=== PATIENT | male | born 1975 | race Caucasian/White ===

== ENCOUNTER 2018-12-25 03:30 | Emergency (ER) | payer BC, OTHER ==
[2018-12-25] MEDS ORDERED: ONDANSETRON HCL INJ/PF 4 MG/2 ML SDV IV ONE (03:39)
[2018-12-25] MEDS ORDERED: KETOROLAC TROMETHAMINE INJ/PF 30 MG/1 ML SDV IV ONE (03:39)
[2018-12-25 04:05] LABS: HEMATOCRIT 42.9 % (37.9-51.0); HEMOGLOBIN 15.2 g/dL (13.5-17.0); MEAN CORPUSCULAR HEMOGLOBIN 32.4 pg (27.0-33.4); MEAN CORPUSCULAR HGB CONC 35.4 g/dL (32.0-36.0); MEAN CORPUSCULAR VOLUME 91 fl (80-97); PLATELET COUNT 217 10^3/uL (150-450); RED CELL DISTRIBUTION WIDTH 12.8 % (11.5-14.0); WHITE BLOOD COUNT 8.8 10^3/uL (4.0-10.5)
[2018-12-25 04:12] LABS: APPEARANCE,URINE CLEAR; BILIRUBIN,URINE NEGATIVE (NEGATIVE); COLOR,URINE YELLOW; GLUCOSE, URINE NEGATIVE (NEGATIVE); KETONES,URINE NEGATIVE (NEGATIVE); LEUKOCYTE ESTERASE,URINE NEGATIVE (NEGATIVE); NITRITE,URINE NEGATIVE (NEGATIVE); PROTEIN,URINE NEGATIVE (NEGATIVE); URINE SPECIFIC GRAVITY 1.018; UROBILINOGEN,URINE NEGATIVE mg/dL (<2.0)
[2018-12-25 04:26] LABS: ABSOLUTE LYMPHOCYTES# (MANUAL) 5.5 10^3/uL (0.5-4.7); ABSOLUTE MONOCYTES # (MANUAL) 0.7 10^3/uL (0.1-1.4); BASOPHILS % (MANUAL) 0 % (0-2); EOSINOPHILS % (MANUAL) 2 % (0-6); LYMPHOCYTES % (MANUAL) 61 % (13-45); MONOCYTES % (MANUAL) 8 % (3-13); PLATELET COMMENT ADEQUATE; RBC MORPHOLOGY COMMENT NORMO-CYTIC/CHROMIC; SEGMENTED NEUTROPHILS % (MAN) 28 % (42-78); TOTAL CELLS COUNTED 100
[2018-12-25 04:32] LABS: ALBUMIN 4.6 g/dL (3.5-5.0); ALKALINE PHOSPHATASE 47 U/L (38-126); ANION GAP 9 (5-19); ASPARTATE AMINO TRANSFERASE 33 U/L (17-59); BILIRUBIN,DIRECT 0.3 mg/dL (0.0-0.4); BILIRUBIN,TOTAL 0.7 mg/dL (0.2-1.3); BLOOD UREA NITROGEN 22 mg/dL (7-20); CALCIUM 9.6 mg/dL (8.4-10.2); CARBON DIOXIDE 30 mmol/L (22-30); CHLORIDE 102 mmol/L (98-107); GLUCOSE 113 mg/dL (75-110); POTASSIUM 4.6 mmol/L (3.6-5.0)
[2018-12-25] MEDS ORDERED: HYDROMORPHONE HCL INJ/PF 2 MG/ML AMPULE IV ONE ×2 (05:41→06:39)
[2018-12-25] MEDS ORDERED: NORMAL SALINE 1000 ML 1,000 ML IV ONE (05:42)
--- NOTE | 2018-12-25 06:30 | RADIOLOGY REPORT (SQ) ---
EXAM DESCRIPTION: CT ABDOMEN PELVIS WITHOUT IV CONTRAST COMPLETED DATE/TME: 12/25/2018 05:42 CLINICAL HISTORY: 43 years, Male, R flank pain, hx renal stones COMPARISON: None. TECHNIQUE: Axial CT images of the abdomen and pelvis were obtained without contrast. Sagittal and coronal reformats were performed. DLP 855 Images stored on PACS. All CT scanners at this facility use dose modulation, iterative reconstruction, and/or weight based dosing when appropriate to reduce radiation dose to as low as reasonably achievable (ALARA). [facility]: Dose Right [facility]: CareDose [facility]: Dose Right [facility]: Teradose 4D [facility]: [employer] LIMITATIONS: None. FINDINGS: The lung bases are clear. The liver, gallbladder, pancreas, spleen, and adrenal glands are unremarkable. There is a 3 mm stone within the distal right ureter causing mild hydroureter and hydronephrosis. There are additional stones within the right kidney the largest of which measures 6 mm in size. There is a 4 mm nonobstructing stone along the upper pole of the left kidney. There is no intraperitoneal free air or fluid. There is no lymphadenopathy. The abdominal aorta is normal in caliber. The stomach, small bowel, appendix, and colon appear unremarkable. The urinary bladder and prostate gland are unremarkable. There are no lytic or blastic bone lesions. IMPRESSION: 3 mm stone within the distal right ureter causing mild hydroureter and hydronephrosis. Additional stones within the right kidney measuring up to 6 mm in size. Nonobstructing left-sided nephrolithiasis. TECHNICAL DOCUMENTATION: Quality ID # 436: Final reports with documentation of one or more dose reduction techniques (e.g., Automated exposure control, adjustment of the mA and/or kV according to patient size, use of iterative reconstruction technique) copyright 2010 [employer]- All Rights Reserved
[2018-12-25] MEDS ORDERED: PROMETHAZINE HCL INJ 25 MG/1 ML VIAL IV ONE (06:39)
--- NOTE | 2018-12-25 07:05 | ER Document Report ---
ED General - General Chief Complaint: Possible Kidney Stone Stated Complaint: RIGHT SIDED FLANK PAIN Time Seen by Provider: 12/25/18 05:43 Primary Care Provider: TRELL ACE MD [Primary Care Provider] - Follow up as needed Notes: Patient is a 43-year-old male presents to the emergency department for sudden o nset of right flank right abdominal pain. Patient also complains of generalized dysuria. States he does have a history of kidney stones. Initial orders placed by [facility] provider/nursing staff. Upon my evaluation of the patient he is actively retching and pacing back and forth in the room. He did receive 1 mg of Dilaudid approximately an hour prior to my assessment. Patient's denying any fevers, diarrhea. Patient states pain is colicky in nature. - Related Data Allergies/Adverse Reactions: No Known Allergies Allergy (Unverified 12/25/18 03:31) Past Medical History - General Information source: Patient - Social History Smoking Status: Never Smoker Chew tobacco use (# tins/day): No Frequency of alcohol use: Occasional Drug Abuse: None Family History: Reviewed & Not Pertinent Patient has suicidal ideation: No Patient has homicidal ideation: No Renal/ Medical History: Reports: Hx Kidney Stones Review of Systems - Review of Systems Constitutional: denies: Fever EENT: No symptoms reported Cardiovascular: No symptoms reported Respiratory: No symptoms reported Gastrointestinal: See HPI Genitourinary: See HPI Male Genitourinary: No symptoms reported Musculoskeletal: No symptoms reported Skin: No symptoms reported Hematologic/Lymphatic: No symptoms reported Neurological/Psychological: No symptoms reported Physical Exam - Vital signs Vitals: Temp Pulse Resp BP Pulse Ox 97.5 F 60 18 149/88 H 100 12/25/18 03:31 12/25/18 03:31 12/25/18 03:31 12/25/18 03:31 12/25/18 03:31 - Notes Notes: GENERAL: Alert, interacts well. Pacing [id number], actively retching. HEAD: Normocephalic, atraumatic. EYES: Pupils equal, round, and reactive to light. Extraocular movements intact. ENT: Oral mucosa moist, tongue midline. NECK: Full range of motion. Supple. Trachea midline. LUNGS: Clear to auscultation bilaterally, no wheezes, rales, or rhonchi. No respiratory distress. HEART: Regular rate and rhythm. No murmur ABDOMEN: Soft, non-tender. Non-distended. Bowel sounds present in all 4 quadrants. EXTREMITIES: Moves all 4 extremities spontaneously. No edema, normal radial and dorsalis pedis pulses bilaterally. No cyanosis. BACK: no cervical, thoracic, lumbar midline tenderness. No saddle anesthesia, normal distal neurovascular exam. Right CVA tenderness noted, no left CVA tenderness noted. NEUROLOGICAL: Alert and oriented x3. Normal speech. cranial nerves II through XII grossly intact PSYCH: Normal affect, normal mood. SKIN: Warm, dry, normal turgor. No rashes or lesions noted. Course - Re-evaluation Re-evalutation: 12/25/18 07:02 Patient was initially given Zofran and Dilaudid. Upon my assessment patient was given Phenergan and more Dilaudid based on him in obvious distress, pacing back and forth and actively retching. Laboratory 12/25/18 12/25/18 12/25/18 03:35 03:35 03:35 WBC 8.8 RBC 4.70 Hgb 15.2 Hct 42.9 MCV 91 MCH 32.4 MCHC 35.4 RDW 12.8 Plt Count 217 Lymph % (Auto) Not Reportable [place] % (Auto) Not Reportable Eos % (Auto) Not Reportable Baso % (Auto) Not Reportable Absolute Neuts (auto) Not Reportable Absolute Lymphs (auto) Not Reportable Absolute Monos (auto) Not Reportable Absolute Eos (auto) Not Reportable Absolute Basos (auto) Not Reportable Total Counted 100 Seg Neutrophils % Not Reportable Seg Neuts % (Manual) 28 L Lymphocytes % (Manual) 61 H Atypical Lymphs % 1 Monocytes % (Manual) 8 Eosinophils % (Manual) 2 Basophils % (Manual) 0 Abs Neuts (Manual) 2.5 Abs Lymphs (Manual) 5.5 H Abs Monocytes (Manual) 0.7 Absolute Eos (Manual) 0.2 Abs Basophils (Manual) 0.0 Platelet Comment ADEQUATE RBC Morph Comment NORMO-CYTIC/CHROMIC Sodium 141.1 Potassium 4.6 Chloride 102 Carbon Dioxide 30 Anion Gap 9 BUN 22 H Creatinine 1.16 Est GFR ( Amer) > 60 Est GFR (MDRD) Non-Af > 60 Glucose 113 H Calcium 9.6 Total Bilirubin 0.7 Direct Bilirubin 0.3 Neonat Total Bilirubin Not Reportable Neonat Direct Bilirubin Not Reportable Neonat Indirect Bili Not Reportable AST 33 ALT 31 Alkaline Phosphatase 47 Total Protein 8.0 Albumin 4.6 Urine Color YELLOW Urine Appearance CLEAR Urine pH 5.0 Ur Specific [place] 1.018 Urine Protein NEGATIVE Urine Glucose (UA) NEGATIVE Urine Ketones NEGATIVE Urine Blood MODERATE H Urine Nitrite NEGATIVE Urine Bilirubin NEGATIVE Urine Urobilinogen NEGATIVE Ur Leukocyte Esterase NEGATIVE Urine WBC (Auto) 2 Urine RBC (Auto) 15 Squamous Epi Cells Auto <1 Urine Mucus (Auto) OCC Urine Ascorbic Acid NEGATIVE Abdomen/Pelvis CT 12/25/18 05:42 IMPRESSION: 3 mm stone within the distal right ureter causing mild hydroureter and hydronephrosis. Additional stones within the right kidney measuring up to 6 mm in size. Nonobstructing left-sided nephrolithiasis. TECHNICAL DOCUMENTATION: Quality ID # 436: Final reports with documentation of one or more dose reduction techniques (e.g., Automated exposure control, adjustment of the mA and/or kV according to patient size, use of iterative reconstruction technique) copyright 2011 [employer]- All Rights Reserved Discussed patient's CT results with him at bedside. Discussed use of narcotic pain medication as well as nausea medication. Discussed follow-up with urology and primary care provider. Patient voices he overall feels a lot better after second dose of Dilaudid and Phenergan in the emergency department. At this time will discharge with return precautions and follow-up recommendatio ns. Verbal discharge instructions given a the bedside and opportunity for questions given. Medication warnings reviewed. Patient is in agreement with this plan and has verbalized understanding of return precautions and the need for primary care follow-up in the next 24-72 hours. This medical record was dictated with voice recognizing software. There may be grammatical, syntax errors that are unintended. - Vital Signs Vital signs: Temp Pulse Resp BP Pulse Ox 97.5 F 60 18 149/88 H 100 12/25/18 03:31 12/25/18 03:31 12/25/18 03:31 12/25/18 03:31 12/25/18 03:31 - Laboratory Result Diagrams: 12/25/18 03:35 12/25/18 03:35 Laboratory results interpreted by me: 12/25/18 12/25/18 12/25/18 03:35 03:35 03:35 Seg Neuts % (Manual) 28 L Lymphocytes % (Manual) 61 H Abs Lymphs (Manual) 5.5 H BUN 22 H Glucose 113 H Urine Blood MODERATE H Discharge - Discharge Clinical Impression: Kidney stone Condition: Stable Disposition: HOME, SELF-CARE Instructions: Kidney Stone ([facility]) Additional Instructions: As we discussed you have been seen and treated in the emergency department for a kidney stone. Based on your CT results it does appear that you should be able to pass this kidney stone. Please take pain medication and nausea medication only as needed. Please also stay well-hydrated. Please follow-up with urology in the next 24 to 48 hours. Please return to the emergency room for any further concerns. Prescriptions: Oxycodone HCl/Acetaminophen [Percocet 5-325 mg Tablet] 1 - 2 tab PO Q6 PRN #20 tablet PRN Reason: Ondansetron [Zofran Odt 4 mg Tablet] 1 - 2 tab PO Q6 PRN #10 tab.rapdis PRN Reason: For Nausea/Vomiting Forms: Return to Work Referrals: TRELL ACE MD [Primary Care Provider] - Follow up as needed FIDELINA PANDEY MD [NO LOCAL MD] - Follow up as needed
[2018-12-25 07:19] VITALS: BP 132/68
== END 2018-12-25 07:19 | disposition home or self-care (01) ==
LOC: ER 03:30
DX: N20.0 Calculus of kidney (principal); R30.0 Dysuria; R10.9 Unspecified abdominal pain
CPT/HCPCS: 96376; 99284; 96361; 96374; 96375; 36415; 85025; 80053; 81001; 74176; J1885; J1170; J2550; J2405; J7030

== ENCOUNTER 2018-12-25 18:34 | Emergency (ER) | payer BC ==
[2018-12-25] MEDS ORDERED: KETOROLAC TROMETHAMINE INJ/PF 30 MG/1 ML SDV IV ONE (18:54)
[2018-12-25] MEDS ORDERED: NORMAL SALINE 1000 ML 1,000 ML IV ONE ×2 (18:55→20:35)
[2018-12-25] MEDS ORDERED: TAMSULOSIN HCL 0.4 MG CAP.SR.24H PO ONE (18:55)
[2018-12-25] MEDS ORDERED: MORPHINE SULFATE 10 MG/ML INJ IV ONE (18:56)
--- NOTE | 2018-12-25 18:57 | ER Document Report ---
ED Medical Screen (RME) - General Chief Complaint: Flank Pain Stated Complaint: FLANK PAIN Time Seen by Provider: 12/25/18 18:46 Primary Care Provider: TRELL ACE MD [Primary Care Provider] - Follow up as needed Mode of Arrival: Ambulatory Information source: Patient Notes: Patient is a 43-year-old male with past medical history of kidney stones presenting with complaints after being discharged this morning with a kidney stone. Patient reports he was diagnosed with a 3 mm kidney stone to the right side and discharged from this hospital approximately 7 AM this morning. Patient reports he has been vomiting all day long and his pain is still uncontrollable. Patient states in the past he has been given Flomax which has helped with his kidney stones, he states the previous stones usually passed very quickly and he required minimal medications. Exam: Tenderness to palpation to right flank and right lower quadrant. I have greeted and performed a rapid initial assessment of this patient. A comprehensive ED assessment and evaluation of the patient, analysis of test results and completion of the medical decision making process will be conducted by additional ED providers. I have specifically instructed the patient or family members with the patient to immediately return to any nursing staff should anything change in the patient's condition or with their chief complaint. This medical record was dictated with voice recognizing software. There may be grammatical, syntax errors that are unintended. TRAVEL OUTSIDE OF THE [place] IN LAST 30 DAYS: No - Related Data Allergies/Adverse Reactions: No Known Allergies Allergy (Verified 12/25/18 18:37) Past Medical History Renal/ Medical History: Reports: Hx Kidney Stones Physical Exam - Vital signs Vitals: Temp Pulse Resp BP Pulse Ox 98.3 F 72 18 124/90 H 96 12/25/18 18:38 12/25/18 18:38 12/25/18 18:38 12/25/18 18:38 12/25/18 18:38 Course - Vital Signs Vital signs: Temp Pulse Resp BP Pulse Ox 98.3 F 72 18 124/90 H 96 12/25/18 18:38 12/25/18 18:38 12/25/18 18:38 12/25/18 18:38 12/25/18 18:38 Doctor's Discharge - Discharge Referrals: TRELL ACE MD [Primary Care Provider] - Follow up as needed
[2018-12-25] MEDS ORDERED: ONDANSETRON HCL INJ/PF 4 MG/2 ML SDV IV ONE (19:26)
[2018-12-25 19:37] LABS: ABSOLUTE LYMPHOCYTES (AUTO) 1.8 10^3/uL (0.5-4.7); ABSOLUTE MONOCYTES (AUTO) 0.7 10^3/uL (0.1-1.4); BASOPHILS % (AUTO) 0.4 % (0-2); HEMATOCRIT 43.8 % (37.9-51.0); HEMOGLOBIN 15.3 g/dL (13.5-17.0); LYMPHOCYTES % (AUTO) 14.3 % (13-45); MEAN CORPUSCULAR HEMOGLOBIN 31.7 pg (27.0-33.4); MEAN CORPUSCULAR HGB CONC 34.8 g/dL (32.0-36.0); MEAN CORPUSCULAR VOLUME 91 fl (80-97); MONOCYTES % (AUTO) 5.5 % (3-13); PLATELET COUNT 208 10^3/uL (150-450); RED BLOOD COUNT 4.81 10^6/uL (4.35-5.55); RED CELL DISTRIBUTION WIDTH 12.6 % (11.5-14.0); SEGMENTED NEUTROPHILS % (AUTO) 79.8 % (42-78); TOTAL CELLS COUNTED % (AUTO) 100 %; WHITE BLOOD COUNT 12.6 10^3/uL (4.0-10.5)
[2018-12-25 19:55] LABS: ALKALINE PHOSPHATASE 53 U/L (38-126); ANION GAP 11 (5-19); ASPARTATE AMINO TRANSFERASE 39 U/L (17-59); BILIRUBIN,DIRECT 0.2 mg/dL (0.0-0.4); BLOOD UREA NITROGEN 26 mg/dL (7-20); CALCIUM 9.7 mg/dL (8.4-10.2); CARBON DIOXIDE 27 mmol/L (22-30); CHLORIDE 101 mmol/L (98-107); GLUCOSE 122 mg/dL (75-110); POTASSIUM 4.9 mmol/L (3.6-5.0); TOTAL PROTEIN 8.4 g/dL (6.3-8.2)
[2018-12-25 20:09] LABS: APPEARANCE,URINE CLEAR; BILIRUBIN,URINE NEGATIVE (NEGATIVE); GLUCOSE, URINE NEGATIVE (NEGATIVE); KETONES,URINE TRACE mg/dL (NEGATIVE); LEUKOCYTE ESTERASE,URINE NEGATIVE (NEGATIVE); NITRITE,URINE NEGATIVE (NEGATIVE); PROTEIN,URINE 30 mg/dL (NEGATIVE); URINE SPECIFIC GRAVITY 1.027; UROBILINOGEN,URINE NEGATIVE mg/dL (<2.0)
[2018-12-25 20:10] LABS: COLOR,URINE YELLOW
[2018-12-25] MEDS ORDERED: HYDROMORPHONE HCL INJ/PF 2 MG/ML AMPULE IV ONE (20:36)
--- NOTE | 2018-12-25 22:43 | ER Document Report ---
ED General - General Chief Complaint: Flank Pain Stated Complaint: FLANK PAIN Time Seen by Provider: 12/25/18 18:46 Primary Care Provider: FIDELINA PANDEY MD [NO LOCAL MD] - Follow up as needed TRELL ACE MD [Primary Care Provider] - Follow up as needed Mode of Arrival: Ambulatory Notes: Patient is otherwise healthy 43-year-old male presents to the emergency department with continued right flank pain and nausea vomiting. Patient was at this facility less than 24 hours ago for generalized right flank pain diagnosed with a 3 mm kidney stone. Patient was sent home with Percocet and Zofran. Patient states the pharmacist told him to not take the Percocet until the evening based on the medications that he received in the emergency department. Patient states he did attempt to take the Zofran once but then vomited. Patient states he has "vomited so many times today." Patient states in the past when he had kidney stones he was given tamsulosin and he would like a prescription for same. TRAVEL OUTSIDE OF THE [place] IN LAST 30 DAYS: No - Related Data Allergies/Adverse Reactions: No Known Allergies Allergy (Verified 12/25/18 18:37) Past Medical History - General Information source: Patient - Social History Smoking Status: Never Smoker Family History: Reviewed & Not Pertinent Patient has suicidal ideation: No Patient has homicidal ideation: No Renal/ Medical History: Reports: Hx Kidney Stones Review of Systems - Review of Systems Constitutional: denies: Fever EENT: No symptoms reported Cardiovascular: No symptoms reported Respiratory: No symptoms reported Gastrointestinal: See HPI Genitourinary: See HPI Male Genitourinary: No symptoms reported Musculoskeletal: No symptoms reported Skin: No symptoms reported Hematologic/Lymphatic: No symptoms reported Neurological/Psychological: No symptoms reported Physical Exam - Vital signs Vitals: Temp Pulse Resp BP Pulse Ox 98.3 F 72 18 124/90 H 96 12/25/18 18:38 12/25/18 18:38 12/25/18 18:38 12/25/18 18:38 12/25/18 18:38 - Notes Notes: GENERAL: Alert, interacts well. No acute distress. HEAD: Normocephalic, atraumatic. EYES: Pupils equal, round, and reactive to light. Extraocular movements intact. ENT: Oral mucosa moist, tongue midline. NECK: Full range of motion. Supple. Trachea midline. LUNGS: Clear to auscultation bilaterally, no wheezes, rales, or rhonchi. No respiratory distress. HEART: Regular rate and rhythm. No murmur ABDOMEN: Soft, right pelvic pain noted . Non-distended. Bowel sounds present in all 4 quadrants. EXTREMITIES: Moves all 4 extremities spontaneously. No edema, normal radial and dorsalis pedis pulses bilaterally. No cyanosis. BACK: no cervical, thoracic, lumbar midline tenderness. No saddle anesthesia, normal distal neurovascular exam. right CVA tenderness noted. No left CVA tenderness noted. NEUROLOGICAL: Alert and oriented x3. Normal speech. cranial nerves II through XII grossly intact. PSYCH: Normal affect, normal mood. SKIN: Warm, dry, normal turgor. No rashes or lesions noted. Course - Re-evaluation Re-evalutation: 12/25/18 22:41 Upon initial examination patient he has received morphine and Zofran by RME provider. Patient has no further episodes of vomiting. Patient states the pain is returning and is requesting more pain management. Patient was given 1 mg of Dilaudid. After patient was treated with Dilaudid and reassess patient was sleeping easily arousable to verbal stimuli. Patient has had no further episodes of vomiting since being in the emergency department. Discussed prescriptions for tamsulosin and changing Zofran to Phenergan. Patient states Phenergan typically works better for him. Patient's kidney function was slightly elevated he was treated with 2 L of fluid in the emergency department. Discussed this with my attending Dr. Bueno who was not concerned. Stated patient could be discharged if his pain was controlled. Urine continues to show no signs of infection. Patient has no fever. Discussed close follow-up with primary care provider and urology. At this time will discharge with return precautions and follow-up recommendations. Verbal discharge instructions given a the bedside and opportunity for questions given. Medication warnings reviewed. Patient is in agreement with this plan and has verbalized understanding of return precautions and the need for primary care follow-up in the next 24-72 hours. This medical record was dictated with voice recognizing software. There may be grammatical, syntax errors that are unintended. - Vital Signs Vital signs: Temp Pulse Resp BP Pulse Ox 97.9 F 72 16 135/65 H 99 12/25/18 23:15 12/25/18 23:15 12/25/18 23:15 12/25/18 23:15 12/25/18 23:15 - Laboratory Result Diagrams: 12/25/18 19:11 12/25/18 19:11 Laboratory results interpreted by me: 12/25/18 12/25/18 12/25/18 19:11 19:11 19:11 WBC 12.6 H Absolute Neuts (auto) 10.0 H Seg Neutrophils % 79.8 H BUN 26 H Creatinine 1.72 H Est GFR ( Amer) 53 L Est GFR (MDRD) Non-Af 43 L Glucose 122 H Total Protein 8.4 H Urine Protein 30 H Urine Ketones TRACE H Urine Blood MODERATE H Discharge - Discharge Clinical Impression: Kidney stone Condition: Stable Disposition: HOME, SELF-CARE Instructions: Kidney Stone ([facility]) Additional Instructions: As we discussed you have been seen and treated in the emergency department for your continued kidney stone pain. Your urine continues to note no signs of infection. Please make sure taking Percocet as prescribed. Please also make sure taking nausea medication as prescribed. Please follow-up with your primary care provider and urology within 24 to 48 hours. Return to the emergency room for any further concerns. Prescriptions: Tamsulosin HCl [Flomax 0.4 mg Cap.sr] 0.4 mg PO DAILY #7 cap.sr.24h Promethazine HCl [Phenergan 25 mg Tablet] 1 tab PO Q6H PRN #10 tablet PRN Reason: Referrals: TRELL ACE MD [Primary Care Provider] - Follow up as needed FIDELINA PANDEY MD [NO LOCAL MD] - Follow up as needed
[2018-12-25 23:16] VITALS: BP 135/65
== END 2018-12-25 23:22 | disposition home or self-care (01) ==
LOC: ER 18:34
DX: N20.0 Calculus of kidney (principal); R10.9 Unspecified abdominal pain; R11.2 Nausea with vomiting, unspecified
CPT/HCPCS: 99284; 96361; 96374; 96375; 36415; 87070; 81001; J1885; J2270; J1170; J2405; J7030